=== PATIENT | female | born 1950 | race Caucasian/White ===

== ENCOUNTER 2016-10-20 08:45 | Day surgery (SDC) | payer MEDICARE ==
[~2016-10-20] VITALS: Ht 174 cm; Wt 61.2 kg
[~2016-10-20 08:45] MED LIST: 0.9% Sodium Chloride 1,000 ML IV SCH; ALBU8.5H2 INHALATION; CYA1000I IM; FLUO20CA25 PO; OMEP20CA11 PO; SODI354S PO; Sodium Chloride LOK Flush 10 mL Syringe IV PRN; fentaNYL-PF 50 mCg/mL 2 mL Inj IVPUSH PRN
[2016-10-20] MEDS ORDERED: FERR-83 PO (09:05)
[2016-10-20 09:06] VITALS: BP 117/65; PULSE 74; RESP 18; O2SAT 100
[2016-10-20 10:17] VITALS: BP 99/57; PULSE 76; RESP 14; O2SAT 100
[2016-10-20 10:27] VITALS: BP 107/48; PULSE 77; RESP 14; O2SAT 100
[2016-10-20 10:43] VITALS: BP 107/60; PULSE 65; RESP 16; O2SAT 100
--- NOTE | 2016-10-20 11:27 | ENDO ---
[address] [address] ENDOSCOPY PROCEDURE PATIENT: ISABELLA DANG : 1950 MR#: [id number] ADMIT: 10/20/2016 JOB ID: [id number] DATE OF SERVICE: 10/20/2016 PREOPERATIVE DIAGNOSIS: Anemia. POSTOPERATIVE DIAGNOSIS(ES): 1. Gastritis. 2. Large pedunculated prepyloric gastric polyp. 3. Small gastric body polyp. 4. Poor colonic preparation. 5. Normal limited flexible sigmoidoscopy. PROCEDURE: 1. Upper endoscopy with snare polypectomy with cautery and cold forceps polypectomy and gastric body biopsies. 2. Limited flexible sigmoidoscopy. SURGEON: Den Dewitt MD. INDICATIONS: A 66-year-old female with anemia and after discussing options with the patient, elected to proceed with an upper endoscopy and a colonoscopy. FINDINGS: Her GE junction was at 43 cm from the incisors and grossly, the esophageal mucosa was normal. There was no evidence of esophageal ulcers, esophagitis, neoplasia, or strictures. Retroflexed views of the cardia revealed a Hill I flap valve. The fundus of the stomach appeared normal. Grossly, she had diffuse chronic gastritis but there were no specific ulcerations but some hyperemia of the gastric body and antrum. In the prepyloric stomach there was a 1.5 cm gastric polyp that was pedunculated. It was removed with cautery and snare, and retrieved. In the gastric body there was a smaller polyp that was removed with a cold forceps. The pylorus and duodenum to the second portion of the duodenum were normal. She had a very poor colonic prep. I advanced the colonoscope to 30 cm but the entire colon was filled with very turbid liquid stool and visualization was essentially impossible and so, the scope was withdrawn. Retroflexed views of the rectum were normal. DESCRIPTION OF PROCEDURE: The procedure and sedation plan was discussed with the patient and nursing staff, and a procedural time-out was held. She received 8 mg of Versed and 150 mcg of fentanyl. She gargled with viscous Xylocaine. The Olympus GIF-Q180 video endoscope was passed transorally, advanced into the second portion of the duodenum with results as stated above. Snare polypectomy with cautery of the larger prepyloric polyp was achieved, followed by cold forceps of the antrum and a cold forceps polypectomy of the smaller polyp within the body of the stomach. The polyp was retrieved by suction on the scope and then I reinserted the scope to reinspect the polypectomy site, which was not bleeding, as well as to reinspect the stomach and esophagus without any additional findings. She was repositioned and then, a digital rectal exam was performed and then, the Olympus [id number]-[id number] video colonoscope was passed transanally and, as stated above, she had a very poor prep and at 30 cm, I elected to abandon the procedure. Retroflexed views of the rectum were obtained on withdrawing the scope. PLAN: She will return to my office for a discussion of results. I will also discuss with her the need for doing a colonoscopy.
--- NOTE | 2016-10-24 17:19 | PATH ---
SURGICAL PATHOLOGY Attending Physician:Krystal De Jesus CASE STATUS: Signed Out PATIENT NAME: ISABELLA DANG PID: [id number] : 1950 DATE COLLECTED:10/20/2016 22:01 SPECIMEN: 1: Gastric, Biopsy 2: Stomach, Polyp, Biopsy 3: Stomach, Polyp, Biopsy CLINICAL HISTORY: 1). GASTRIC BODY, RULE OUT H.PYLORI 2). PRE-PYLORIC POLYP 3). GASTRIC BODY POLYP FINAL DIAGNOSIS: 1.STOMACH, BIOPSY: GASTRIC ANTRAL AND BODY MUCOSA WITH CHRONIC, MILDLY ACTIVE GASTRITIS AND FOCAL INTESTINAL METAPLASIA. Negative for Helicobacter organisms by immunohistochemistry. Negative for dysplasia and malignancy. 2.GASTRIC POLYP, BODY, BIOPSY: HYPERPLASTIC GASTRIC POLYP WITH INTESTINAL METAPLASIA AND SURFACE EROSION. Negative for dysplasia and malignancy. 3.GASTRIC POLYP, BODY, BIOPSY: FUNDIC GLAND POLYP WITH INTESTINAL METAPLASIA. Negative for dysplasia and malignancy. ICD10 R10.13 GROSS DESCRIPTION: Received three formalin-filled containers, each labeled with the patient' s name. 1. Received in formalin, labeled with the patient' s name and "gastric body biopsies", are five fragments of mcghee, soft tissue ranging from 0.1 x 0.1 x 0.1 cm to 0.6 x 0.2 x 0.2 cm. The fragments are totally submitted in cassette 1A. 2. Received in formalin, labeled with the patient' s name and "prepyloric polyp", is one fragment of mcghee, soft tissue measuring 1.2 x 0.8 x 0.6 cm. The fragment is bisected and totally submitted in cassette 2A. 3. Received in formalin, labeled with the patient' s name and "gastric body polyp", is one fragment of mcghee, soft tissue measuring 0.3 x 0.2 x 0.2 cm. The fragment is totally submitted in cassette 3A. [id number]) MICRO DESCRIPTION: 1. An immunohistochemical stain was performed to evaluate for Helicobacter organisms and is negative. A control stain showed appropriate reactivity. This test was developed and its performance characteristics determined by [facility]. It has not been cleared or approved by the [place]. Food and Drug Administration. The FDA has determined that such clearance or approval is not necessary. This test is used for clinical purposes. It should not be regarded as investigational or for research. ICD-9 CODES: CPT CODES: 1: 05372, 42977 2: 34188 3: 03208 Electronically Signed Out Fernando Sanabria MD, Ph.D. [facility] Pathology [facility] [address], [place] [address] Technical component performed at [facility], [address], [place], [address]
== END 2016-10-20 23:59 | disposition home or self-care (01) ==
LOC: END 08:45
PROVIDERS: ATTEND Surgery
DX: K31.7 Polyp of stomach and duodenum (principal); K29.50 Unspecified chronic gastritis without bleeding; D50.9 Iron deficiency anemia, unspecified; R10.10 Upper abdominal pain, unspecified; Z87.891 Personal history of nicotine dependence